=== PATIENT | female | born 1985 | race African-American/Black ===

== ENCOUNTER 2023-03-24 12:09 | Emergency (ER) | payer BC ==
[~2023-03-24 12:09] MED LIST: Iopamidol 300 61% 100 ML VIAL FS ONE
[2023-03-24] MEDS ORDERED: Ketorolac Tromethamine 30 MG/ML VIAL ONE (13:05)
[2023-03-24] MEDS ORDERED: Ondansetron PF 4 MG/2 ML Vial ONE (13:05)
[2023-03-24 13:19] LABS: #Eosinphils 0.3 10x3/uL (0.0-0.5); #Monocytes 0.4 10x3/uL (0.0-1.1); #Neutrophils 2.5 10x3/uL (1.5-8.4); %Basophils 0.7 % (0.0-2.0); %Eosinophils 4.7 % (0.0-6.0); %Lymphocytes 45.5 % (18.0-47.0); %Monocytes 6.4 % (0.0-10.0); %Neutrophils 42.5 % (40.0-75.0); Hematocrit 35.4 % (34.9-44.5); Hemoglobin 11.9 g/dL (12.0-15.5); Mean Corpuscular HGB CONC 33.6 g/dL (32.0-36.0); Mean Corpuscular Hemoglobin 25.9 pg (27.0-33.0); Mean Corpuscular Volume 77.1 fl (81.6-98.3); Mean Platelet Volume 11.2 fl (7.4-10.4); Platelet Count 346 10x3/uL (150-450); Red Blood Cell (RBC) Count 4.59 10x6/uL (3.90-5.03); White Blood Cell (WBC) Count 5.9 10x3/uL (3.5-10.5)
[2023-03-24 13:22] LABS: BHCG - Serum Negative (NEGATIVE); Pregs Control Background? CLEAR/WHITE (CLR/WHITE); Pregs Control Bar Appear? YES (CONTROL BAR)
[2023-03-24 13:29] LABS: ALT (SGPT) 11 U/L (8-55); AST (SGOT) 16 U/L (5-34); Albumin 3.9 g/dL (3.5-5.0); Alkaline Phosphatase 51 U/L (40-110); Anion Gap 13 mmol/L (10-20); BUN (Urea Nitrogen) 11 mg/dL (7.0-18.7); Bilirubin, Total 0.2 mg/dL (0.2-1.2); Calc. Creatinine Clearance 0 mL/min (70-130); Carbon Dioxide 24 mmol/L (22-29); Chloride 106 mmol/L (98-107); Estimated GFR 88; Globulin 2.9 g/dL (2.4-3.5); Glucose 81 mg/dL (70-105); Lipase 63 U/L (8-78); Magnesium 1.9 mg/dL (1.6-2.6); Potassium 3.6 mmol/L (3.5-5.1); Protein, Total 6.8 g/dL (6.0-8.3); Sodium 139 mmol/L (136-145)
== END 2023-03-24 16:34 | disposition home or self-care (01) ==
LOC: CSHERS 12:09
DX: A08.4 Viral intestinal infection, unspecified (principal)
CPT/HCPCS: 74177; 80053; 83690; 83735; 84703; 85025; 96361; 96374; J1885; J2405; Q9967

== ENCOUNTER 2023-12-02 20:20 | Emergency (ER) | payer BC, SELFPAY ==
[2023-12-02 21:19] LABS: #Basophils 0.03 10x3/uL (0.0-0.2); #Eosinphils 0.25 10x3/uL (0.0-0.5); #Monocytes 0.47 10x3/uL (0.0-1.1); #Neutrophils 2.94 10x3/uL (1.5-8.4); %Basophils 0.5 % (0.0-2.0); %Eosinophils 4.3 % (0.0-6.0); %Lymphocytes 37.1 % (18.0-47.0); %Neutrophils 49.9 % (40.0-75.0); Hemoglobin 11.6 g/dL (12.0-15.5); Mean Corpuscular HGB CONC 35.2 g/dL (32.0-36.0); Mean Corpuscular Hemoglobin 26.4 pg (27.0-33.0); Mean Corpuscular Volume 75.2 fL (81.6-98.3); Mean Platelet Volume 10.5 fL (7.4-10.4); Platelet Count 345 10x3/uL (150-450); RBC Distribution Width 13.6 % (11.5-14.5); Red Blood Cell (RBC) Count 4.39 10x6/uL (3.90-5.03); White Blood Cell (WBC) Count 5.9 10x3/uL (3.5-10.5)
== END 2023-12-03 00:21 | disposition home or self-care (01) ==
LOC: CSHERS 20:20
DX: O20.0 Threatened abortion (principal); Z3A.12 12 weeks gestation of pregnancy
CPT/HCPCS: 36415; 76856; 84702; 85025; 86900; 86901

== ENCOUNTER 2024-05-26 14:59 | Inpatient (IN) | payer MEDICAID, OTHER ==
[2024-05-26] MEDS ORDERED: Tranexamic Acid 1,000 MG/10 ML VIAL IVP PRN (17:09)
[2024-05-26] MEDS ORDERED: Lidocaine 1% (PF) 30 ML VIAL SC PRN (17:09)
[2024-05-26] MEDS ORDERED: Ondansetron PF 4 MG/2 ML Vial IVP PRN (17:09)
[2024-05-26] MEDS ORDERED: Carboprost 250 MCG/ML AMP IM PRN (17:09)
[2024-05-26] MEDS ORDERED: Lorazepam 2 MG/ML VIAL SLOW IVP PRN (17:09)
[2024-05-26] MEDS ORDERED: Acetaminophen 500 MG TAB PO PRN (17:09)
[2024-05-26] MEDS ORDERED: HYDROcodone/Acetaminophen 5/325 mg Tablet PO PRN (17:09)
[2024-05-26] MEDS ORDERED: Diphenoxylate HCl/Atropine Tablet PO PRN (17:09)
[2024-05-26] MEDS ORDERED: Misoprostol 200 MCG TAB PR PRN (17:09)
[2024-05-26] MEDS ORDERED: Promethazine HCl 25 MG/ML VIAL IM PRN (17:09)
[2024-05-26] MEDS ORDERED: Calcium Gluc 4.6 MEQ/10 ML (100 MG/ML) SLOW IVP PRN (17:09)
[2024-05-26] MEDS ORDERED: hydrALAZINE 20 MG/ML VIAL SLOW IVP PRN ×3 (17:09)
[2024-05-26] MEDS ORDERED: fentaNYL 50 mcg/mL 1 mL Vial SLOW IVP PRN (17:09)
[2024-05-26] MEDS ORDERED: Ibuprofen 800 MG TAB PO PRN (17:09)
[2024-05-26] MEDS ORDERED: Labetalol HCl 100 MG/20 ML VIAL SLOW IVP PRN ×2 (17:09)
[2024-05-26] MEDS ORDERED: Oxytocin 30 units/NS 500 ML 500 ML IV SCH (17:15)
[2024-05-26 17:24] LABS: Hematocrit 29.5 % (34.9-44.5); Hemoglobin 9.7 g/dL (12.0-15.5); Mean Corpuscular HGB CONC 32.9 g/dL (32.0-36.0); Mean Corpuscular Hemoglobin 24.8 pg (27.0-33.0); Mean Corpuscular Volume 75.4 fL (81.6-98.3); Mean Platelet Volume 13.1 fL (7.4-10.4); RBC Distribution Width 13.7 % (11.5-14.5); Red Blood Cell (RBC) Count 3.91 10x6/uL (3.90-5.03); White Blood Cell (WBC) Count 5.28 10x3/uL (3.5-10.5)
[2024-05-26 17:27] LABS: Platelet Count 245 10x3/uL (150-450)
[2024-05-26 17:34] LABS: ALT (SGPT) 12 U/L (8-55); AST (SGOT) 11 U/L (5-34); Albumin 2.6 g/dL (3.5-5.0); Alkaline Phosphatase 98 U/L (40-110); Anion Gap 13 mmol/L (10-20); BUN (Urea Nitrogen) 9 mg/dL (7.0-18.7); Bilirubin, Total 0.3 mg/dL (0.2-1.2); Calc. Creatinine Clearance 0 mL/min (70-130); Calcium 8.4 mg/dL (7.8-10.44); Carbon Dioxide 21 mmol/L (22-29); Chloride 107 mmol/L (98-107); Estimated GFR 116; Glucose 86 mg/dL (70-105); Potassium 3.6 mmol/L (3.5-5.1); Protein, Total 5.6 g/dL (6.0-8.3); Sodium 137 mmol/L (136-145)
[2024-05-26 17:35] VITALS: BMI 40.8
[2024-05-26] MEDS: NIFEdipine XL 30 MG ER.TAB PO SCH (17:39)
[2024-05-26 17:53] LABS: HBsAg Index 0.21 S/CO (0-0.99); Hep B Surf Ag - L&D Non-Reactive S/CO (NonReactive); Syphilis Antibody Nonreactive (Nonreactive); Syphilis Antibody Index 0.03 S/CO (<1.00 Non-Reactive)
[2024-05-26 18:15] LABS: Creatinine, Urine 92.48 mg/dL (47-110)
[2024-05-27] MEDS: Oxytocin 30 units/NS 500 ML 500 ML IV SCH (05:10)
[2024-05-27] MEDS: Lactated Ringer's 1,000 ML IV SCH (05:10)
[2024-05-27] MEDS: fentaNYL/Ropivacaine Epidural 100 ML ONE (07:28)
[2024-05-27] MEDS: NIFEdipine XL 30 MG ER.TAB PO SCH (07:33)
[2024-05-27] MEDS ORDERED: Acetaminophen 325 MG TAB PO PRN (08:55)
[2024-05-27] MEDS ORDERED: Lactated Ringer's 500 ML IV PRN (08:55)
[2024-05-27] MEDS ORDERED: Ondansetron PF 4 MG/2 ML Vial IVP PRN ×2 (08:55→14:32)
[2024-05-27] MEDS ORDERED: Promethazine HCl 25 MG/ML VIAL IM PRN ×2 (08:55→14:32)
[2024-05-27] MEDS ORDERED: Moisturizing Cream (Eucerin) 113 GM JAR TOP PRN (08:55)
[2024-05-27] MEDS ORDERED: diphenhydrAMINE 50 MG/ML VIAL IVP PRN (08:55)
[2024-05-27] MEDS ORDERED: ePHEDrine Sulfate 50 MG/10 ML VIAL SLOW IVP PRN (08:55)
[2024-05-27] MEDS ORDERED: Naloxone HCl 0.4 mg/ml Vial IVP PRN ×2 (08:55)
[2024-05-27] MEDS ORDERED: fentaNYL 2 mcg/Ropivacaine 0.2% Epidural 100 ML CADD EPIDURAL SCH (09:00)
[2024-05-27] MEDS ORDERED: Communication Order-Pharmacy FS SCH (09:00)
[2024-05-27] MEDS ORDERED: Milk Of Magnesia 30 ML UDCUP PO PRN (14:32)
[2024-05-27] MEDS ORDERED: hydrALAZINE 20 MG/ML VIAL SLOW IVP PRN (14:32)
[2024-05-27] MEDS ORDERED: cloNIDine 0.1 MG TAB PO PRN (14:32)
[2024-05-27] MEDS ORDERED: diphenhydrAMINE 25 MG CAP PO PRN (14:32)
[2024-05-27] MEDS ORDERED: Benzocaine-Menthol 82.5 ML CAN TOP PRN (14:32)
[2024-05-27] MEDS ORDERED: Preparation H Ointment 28 GM TUBE PR PRN (14:32)
[2024-05-27] MEDS ORDERED: Bisacodyl 10 MG SUPP PR PRN (14:32)
[2024-05-27] MEDS ORDERED: Lanolin Ointment 7 GM TUBE TOP PRN (14:32)
[2024-05-27] MEDS ORDERED: Boostrix 0.5 ML (Tdap) VIAL (>/=7 yrs of age) IM ONE (14:32)
[2024-05-27] MEDS: Ibuprofen 800 MG TAB PO SCH (14:47)
[2024-05-27] MEDS: Ferrous Sulfate 325 MG TAB PO SCH (16:22)
[2024-05-27] MEDS: HYDROcodone/Acetaminophen 5/325 mg Tablet PO PRN (16:22)
[2024-05-27] MEDS: Docusate 100 MG CAP PO SCH (21:51)
[2024-05-28] MEDS: Prenatal Vitamin 1 TAB PO SCH (09:25)
[2024-05-28] MEDS: NIFEdipine XL 30 MG ER.TAB PO SCH (17:57)
[2024-05-29] MEDS: NIFEdipine XL 60 MG ER.TAB PO SCH (08:31)
[2024-05-29 11:36] VITALS: TEMP 98.3
[2024-05-29 20:58] VITALS: BP 137/85
== END 2024-05-29 15:15 | disposition home or self-care (01) | DRG 807 ==
LOC: OBSVTOIN 14:59 → CSHLD 14:59 → CSHPED 05-27 14:20
PROVIDERS: ADMIT Family Medicine; ATTEND Family Medicine
PROC: 10907ZC Drainage of Amniotic Fluid, Therapeutic from Products of Conception, Via Natural or Artificial Opening (ICD-10-PCS; principal; 2024-05-27)
PROC: 10E0XZZ Delivery of Products of Conception, External Approach (ICD-10-PCS; 2024-05-27)
DX: O14.04 Mild to moderate pre-eclampsia, complicating childbirth (principal); Z37.0 Single live birth; Z3A.37 37 weeks gestation of pregnancy; O09.523 Supervision of elderly multigravida, third trimester; Z79.82 Long term (current) use of aspirin; Z88.8 Allergy status to other drugs, medicaments and biological substances
CPT/HCPCS: 76819; 80053; 82570; 84156; 85027; 86780; 86850; 86900; 86901; 87340; J2590; J7120